=== PATIENT | female | born 1975 | race American Indian/Alaskan Native ===

== ENCOUNTER 2020-01-22 17:00 | Emergency (ER) | payer OTHER ==
--- NOTE | 2020-01-22 17:09 | Event Note ---
ED Screening Note Date of service: 01/22/20 Time: 17:08 ED Screening Note: Patient sent here by her WINDOW [employer] CONDITIONER INSTALLER for ectopic Patient has note from W[employer]OW [employer] INSTALLER to recommend methotrexate Patient also has ultrasound results This initial assessment/diagnostic orders/clinical plan/treatment(s) is/are subject to change based on patients health status, clinical progression and re- assessment by fellow clinical providers in the ED. Further treatment and workup at subsequent clinical providers discretion. Patient/guardian urged not to elope from the ED as their condition may be serious if not clinically assessed and managed. Initial orders include: Main ED Labs
[2020-01-22 17:26] LABS: Basophils % (Auto) 0.7 % (0.0-1.8); Eosinophils # (Auto) 0.1 K/mm3 (0.0-0.4); Hematocrit 38.6 % (30.3-42.9); Hemoglobin 12.9 gm/dl (10.1-14.3); Lymphocytes # (Auto) 2.3 K/mm3 (1.2-5.4); Lymphocytes % (Auto) 34.6 % (13.4-35.0); Mean Corpuscular HGB Conc 33 % (30-34); Mean Corpuscular Volume 78 fl (79-97); Monocytes # (Auto) 0.6 K/mm3 (0.0-0.8); Monocytes % (Auto) 8.5 % (0.0-7.3); Platelet Count 284 K/mm3 (140-440); Red Blood Count 4.95 M/mm3 (3.65-5.03); Red Cell Distribution Width 13.2 % (13.2-15.2)
[2020-01-22 17:46] LABS: Alanine Aminotransferase 8 units/L (7-56); Albumin 4.2 g/dL (3.9-5); Blood Urea Nitrogen 6 mg/dL (7-17); Calcium 9.7 mg/dL (8.4-10.2); Hemolysis Index 4
[2020-01-22 18:00] LABS: BUN/Creatinine Ratio 10
--- NOTE | 2020-01-22 23:39 | Emergency Department Report ---
ED HPI - General Chief complaint: Abdominal Pain Stated complaint: ETOPIC Time Seen by Provider: 01/22/20 17:07 Source: patient Mode of arrival: Ambulatory Limitations: No Limitations - History of Present Illness Initial comments: 45-year-old female with history of Essure and prior ectopic, presents to ED with diagnosis of ectopic from her POWER OPERATOR's office. Patient reports having a missed period, so she followed up with her POWER OPERATOR, where she had a positive test. Patient is 5 weeks 3 days by LMP. Patient had a quant hCG 4 days ago of 2032. Ultrasound today shows no IUP. They recommend IM methotrexate. Patient states she received methotrexate for her previous ectopic 5 years ago as well. Patient denies any abdominal pain or vaginal bleeding. Pt has note from Dr Puente explaining all of this w/ attached US pics. [facility] (Dr Puente) Complaint: other (ectopic ) -: unknown Location: pelvis Severity: mild Quality: other (painless) Improves with: none Worsens with: none Associated symptoms: denies: vaginal bleeding, abdominal pain Vaginal bleeding: none :: Yes Number of weeks : 5 OB History - Previous Pregnancies: other (ectopic) Pre- care: followed by [facility] ( [facility]) - Related Data Previous Rx's Medication Instructions Recorded Last Taken Type Acetaminophen/Codeine [Tylenol #3] 1 tab PO Q6H PRN #20 tab 10/06/15 Unknown Rx Allergies Allergy/AdvReac Type Severity Reaction Status Date / Time No Known Allergies Allergy Unverified 05/16/14 13:26 ED Review of Systems ROS: Stated complaint: ETOPIC Other details as noted in HPI Comment: All other systems reviewed and negative Gastrointestinal: denies: abdominal pain Genitourinary: other (denies vag bleeding) ED Past Medical Hx - Past Medical History Previous Medical History?: No Hx Hypertension: No Hx Asthma: No - Surgical History Past Surgical History?: No Additional Surgical History: 2001 - Social History Smoking Status: Never Smoker Substance Use Type: None - Medications Home Medications: Home Medications Medication Instructions Recorded Confirmed Last Taken Type Acetaminophen/Codeine [Tylenol #3] 1 tab PO Q6H PRN #20 tab 10/06/15 Unknown Rx ED Physical Exam - General Limitations: No Limitations General appearance: alert, in no apparent distress - Head Head exam: Present: atraumatic, normocephalic - Eye Eye exam: Present: normal appearance, EOMI - ENT ENT exam: Present: mucous membranes moist - Neck Neck exam: Present: normal inspection - Respiratory Respiratory exam: Present: normal lung sounds bilaterally. Absent: respiratory distress - Cardiovascular Cardiovascular Exam: Present: regular rate, normal rhythm - GI/Abdominal GI/Abdominal exam: Present: soft. Absent: distended, tenderness - Extremities Exam Extremities exam: Present: normal inspection - Neurological Exam Neurological exam: Present: alert, oriented X3 - Psychiatric Psychiatric exam: Present: normal affect, normal mood - Skin Skin exam: Present: warm, dry, intact, normal color ED Course Vital Signs 01/22/20 01/22/20 01/23/20 17:05 23:44 00:02 Temperature 99.0 F 98.0 F Pulse Rate 81 74 70 Respiratory 18 18 18 Rate Blood Pressure 113/68 Blood Pressure 100/73 114/65 [Left] O2 Sat by Pulse 97 99 99 Oximetry 01/23/20 01:10 Temperature Pulse Rate 68 Respiratory 18 Rate Blood Pressure Blood Pressure 116/65 [Left] O2 Sat by Pulse 99 Oximetry - Consultations Consultation #1: 01/23/20 00:57 Spoke w/ Gabriella Rodriguez NP director of marketing communications. Confirms treatment plan. States pt needs to f/u in office on Saturday 01/27 ED Medical Decision Making - Lab Data Result diagrams: 01/22/20 17:09 01/22/20 17:09 - Medical Decision Making 45-year-old female, 5 weeks , with presumed ectopic . Ultrasound shows no IUP. Patient status post Essure. Sent to ED by POWER OPERATOR for methotrexate injection. Patient denies any abdominal pain or vaginal bleeding. Vital signs are stable. Labs are unremarkable. Patient advised to follow-up with her POWER OPERATOR on Tuesday. Return precautions given. - Differential Diagnosis Ectopic Critical care attestation.: If time is entered above; I have spent that time in minutes in the direct care of this critically ill patient, excluding procedure time. ED Disposition Clinical Impression: Ectopic Disposition: - TO HOME OR SELFCARE Is pt being admited?: No Condition: Stable Instructions: Methotrexate Treatment for an Ectopic , Care After, Ectopic , Abdominal Pain (ED) Referrals: PRIMARY CARE, [Primary Care Provider] - 3-5 Days Time of Disposition: 01:00
[2020-01-23 01:31] VITALS: BP 116/65
== END 2020-01-23 01:10 | disposition home or self-care (01) ==
LOC: ED 17:00
DX: O00.90 Unspecified ectopic pregnancy without intrauterine pregnancy (principal); Z79.899 Other long term (current) drug therapy
CPT/HCPCS: 36415; 80053; 84702; 85025; 86900; 86901; 96372; 99283; J9260